=== PATIENT | female | born 1985 | race Caucasian/White ===

== ENCOUNTER 2017-01-15 03:36 | Inpatient (IN) | payer OTHER ==
[2017-01-15] MEDS ORDERED: TERBUTALINE SULFATE 1 MG/ML VIAL IV PRN (04:56)
[2017-01-15] MEDS ORDERED: OXYTOCIN 20 UNIT in LR 1,000 ML IV PRN (04:56)
[2017-01-15] MEDS ORDERED: EPSOM SALT 454 GM TP PRN (04:56)
[2017-01-15] MEDS ORDERED: IBUPROFEN 600 MG TAB PO PRN (04:56)
[2017-01-15] MEDS ORDERED: LR 1,000 ML IV PRN (04:56)
[2017-01-15] MEDS ORDERED: OLIVE OIL 118 ML BTL MISC PRN (04:56)
--- NOTE | 2017-01-15 05:08 | GHP ---
[f rep st] PREOP HISTORY AND PHYSICAL DATE OF ADMISSION: 01/15/2017 ADMITTING DIAGNOSIS: Intrauterine at 39 and 6/7 weeks' gestation in active labor. HISTORY OF PRESENT ILLNESS: The patient is a 31-year-old 1, para 0 with a last menstrual per iod of 03/29/2016, and EDC of 01/16/2017. She is set by a first trimester ultrasound. She has had g ood care at [facility] since transfer at 25 weeks. She was living in [place] prior to that. 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 She had an amniocentesis performed and the b guerda is also an SMA carrier, but not affected. She is allergic to penicillin, it gives her hives. Ot her than that, she has had a normal course and has progressed to 39-5/7 weeks. She began zabala ving contractions. They are progressing to every 2-3 minutes and strong. Upon evaluation, hea rt tones are 140s, reactive, moderate variability, category 1. She is obed every 2-3 minutes. Her cervix, per RN exam, is 5, 50, -2, and she is intact. She will be admitted for active labor [facility]. The patient desires an epidural for pain control. PAST OBSTETRICAL HISTORY: The patient has no past obstetrical history, this is her first . PAST GYNECOLOGICAL HISTORY: She has a normal menstrual triad, menarche at age 18. She has irregular cycles, they are 5 days in length. This was a planned . She has no significant gynecologi anju problems. No history of abnormal Paps. No history of STDs. She used OCPs and the NuvaRing in t he past. PAST MEDICAL HISTORY: She has no significant medical problems. PAST SURGICAL HISTORY: No surgical history. ALLERGIES: She is allergic to penicillin, it causes her to have hives. LABS: She is A positive, rubella immune, hepatitis negative, HIV negative. She is an SMA carrier an d the father of the baby, as well as this baby is a carrier. 1-hour GTT was 146, three-hour was norm al. was negative. GBS was negative. SOCIAL HISTORY: She is . She works as a project scientist for a [employer] and she has traveled to [place] frequently during this . She denies tobacco, alcohol, and drug use. FAMILY HISTORY: Paternal grandfather had asthma. Maternal grandmother had bowel cancer. Maternal g randfather had strokes. Maternal grandmother had Alzheimer disease. Paternal grandmother had schizo phrenia. No other significant family history. REVIEW OF SYSTEMS: Negative, except for pertinents above. OBJECTIVE: Today she is afebrile. Vital signs are stable. heart tones 140s, reactive, modera te variability, category 1. She is obed every 2-3 minutes. Cervix is 5, 50, -2. ASSESSMENT AND PLAN: This is a 31-year-old 1, para 0 at 39 and 6/7 weeks' gestation in activ e labor. The patient is admitted for active labor management. She desires an epidural for pain cont rol at this time. status is reassuring. /[id number]/MODL
[2017-01-15 05:10] LABS: ADD DIFF? YES; ADD MORPH? NO; ADD SCAN? NO; ATYPICAL LYMPHOCYTE FLAG 0 (0-99); FRAGMENT RBC FLAG 0 (0-99); HEMATOCRIT 36.2 % (38.0-47.0); HEMOGLOBIN 12.7 g/dL (12.6-16.3); LEFT SHIFT FLG 10 (0-99); LIPEMIA HEMOLYSIS FLAG 90 (0-99); MEAN CELL HEMOGLOBIN 32.6 pg (27.9-34.1); MEAN CELL HEMOGLOBIN CONCENTR. 35.1 g/dL (32.4-36.7); MEAN CELL VOLUME 92.8 fL (81.5-99.8); MEAN PLATELET VOLUME 10.6 fL (8.7-11.7); PLATELET CLUMPS FLAG 0 (0-99); PLATELET COUNT 307 10^3/uL (150-400)
[2017-01-15] MEDS ORDERED: PHENYLEPHRINE HCL 100 MCG/ML SYR ONE (05:13)
[2017-01-15] MEDS ORDERED: fentaNYL 2MCG/ML/BUP 0.1% RTU 100 ML BAG EP ONE (05:13)
[2017-01-15] MEDS ORDERED: BUPIVACAINE 0.25% 30 ML SDV ONE (05:13)
[2017-01-15] MEDS ORDERED: fentaNYL 100 MCG/2 ML INJ ONE (05:14)
--- NOTE | 2017-01-15 06:29 | PREANESOB ---
Obstetric Pre-Anesthesia Info - General Info Proposed Procedure: Labor and delivery. : 1 Para: 0 YOEL: 01/16/17 Gestational Age: 39 week(s) and 6 day(s) - Info Status: Full Term Monitors: External FHR Baseline (bpm): 140 FHR Pattern: Reassuring - Labor Status Cervical Dilation per last OB SVE: 5 Indications for Labor Analgesia: Pain Control Labor Epidural: Proposed Anesthesia ROS: Negative. Allergies/Adverse Reactions: Allergy/AdvReac Type Severity Reaction Status Date / Time Penicillins Allergy Verified 01/15/17 05:15 Visit Medications: Generic Name Dose Route Start Last Admin Trade Name Freq PRN Reason Stop Dose Admin Lactated Ringer's 1,000 mls @ 0 mls/hr 01/15/17 04:56 Lr IV 01/16/17 04:55 PRN PRN SEE PROTOCOL CONDITIONS Protocol Per Protocol Oxytocin 20 unit/ Lactated 1,002 mls @ 150 mls/hr 01/15/17 04:56 Ringer's IV PRN PRN Post- bleeding Ibuprofen 600 mg 01/15/17 04:56 Motrin PO 07/14/17 04:55 Q6HRS PRN post , inflammation Magnesium Sulfate 454 gm 01/15/17 04:56 Epsom Salt TP 07/14/17 04:55 Q1H PRN perineal discomfort [place]ama Oil 118 ml 01/15/17 04:56 Sweet Oil MISC 07/14/17 04:55 ONCE PRN perineal massage Terbutaline Sulfate 0.25 mg 01/15/17 04:56 Brethine IV 07/14/17 04:55 ONCE PRN Tachysystole Discontinued Medications Generic Name Dose Route Start Last Admin Trade Name Freq PRN Reason Stop Dose Admin Bupivacaine HCl Confirm 01/15/17 05:13 Sensorcaine 0.25% Sdv Administered 01/15/17 05:14 Dose 30 ml .ROUTE .STK-MED ONE Fentanyl Confirm 01/15/17 05:14 Sublimaze Administered 01/15/17 05:15 Dose 100 mcg .ROUTE .STK-MED ONE Fentanyl/Bupivacaine HCl Confirm 01/15/17 05:13 Fentanyl/Bupivacaine/Ns 2 Mcg/Ml 0.1% (Premix Administered 01/15/17 05:14 Dose 100 ml EP .STK-MED ONE Phenylephrine HCl Confirm 01/15/17 05:13 Neosynephrine Administered 01/15/17 05:14 Dose 1,000 mcg .ROUTE .STK-MED ONE - Anesthesia History Response to Local Anesthetics: Normal Anesthesia & Operative History: No Prior Problems Family Anesthesia History: Negative - Social History Substance Use/Abuse: Denies - Vital Signs Blood Pressure: 128/77 Heart Rate: 93 Height/Weight (Nursing): Height 158 cm Weight 68.492 kg - Focused Exam Neck exam: FROM Mallampati Score: Class 1 Mouth exam: normal dental/mouth exam Pulmonary: no respiratory distress Cardiovascular: regular rate and rhythym Labs: 01/15/17 04:45 Patient ABO/Rh A POSITIVE 01/15/17 04:45 - Plan Anesthetic Plan: MATILDA Consent Signed and on Chart: Yes Patient/Guardian Understands and Agrees to Plan: Yes Urgent/Emergent Case: Omari buck completed preop but documented later for safe timely pt care
[2017-01-15 06:31] LABS: PLATELET ESTIMATE ADEQUATE (ADEQ)
[2017-01-15] MEDS ORDERED: PHENYLEPHRINE HCL 100 MCG/ML SYR IVP PRN (06:32)
[2017-01-15] MEDS ORDERED: ONDANSETRON 4 MG/2 ML VIAL IVP PRN (06:32)
--- NOTE | 2017-01-15 06:32 | POSTANESTH ---
Post Anesthetic Evaluation Cardiovascular Status: Normal, Stable, Similar to Pre-Op Cond Respiratory Status: Normal, Stable, Similar to Pre-op Cond. Level of Consciousness/Mental Status: Can Participate in Eval, Alert and Oriented Pain Control: Adequate, Prn Tx Ordered Nausea/Vomiting Control: Adequate, Prn Tx Ordered Complications Possibly Related to Anesthesia: None Noted
[2017-01-15] MEDS ORDERED: LIDOCAINE 1% 300 MG/30 ML SDV ONE (06:46)
[2017-01-15] MEDS ORDERED: OLIVE OIL 118 ML BTL ONE (06:47)
[2017-01-15] MEDS ORDERED: MISOPROSTOL 200 MCG TAB ONE (06:47)
[2017-01-15] MEDS ORDERED: AMMONIA AROMATIC 1 EACH AMP IH ONE (06:47)
[2017-01-15] MEDS ORDERED: OXYTOCIN 10 UNIT/ML VIAL ONE ×2 (06:47→09:30)
[2017-01-15] MEDS ORDERED: TERBUTALINE SULFATE 1 MG/ML VIAL ONE (06:47)
[2017-01-15] MEDS ORDERED: LR 500 ML IV SCH (07:00)
[2017-01-15] MEDS ORDERED: fentaNYL 2MCG/ML/BUP 0.1% RTU 100 ML EP SCH (07:00)
--- NOTE | 2017-01-15 08:54 | OBPROG ---
Labor Progress Note Assessment/Plan: Assessment: IUP at 39w6d, SSOC, SROM, clear, GBS - comf with MATILDA but feeling pressure mom, dad and baby are SMA carriers Plan: Complete and +1 station, will begin pushing soon 01/15/17 08:51 Subjective/Intrapartum Course: 01/15/17 08:53 Comf with MATILDA, feeling pressure Objective: 01/15/17 04:45 Patient ABO/Rh A POSITIVE 01/15/17 04:45 Temp Pulse Resp BP Pulse Ox 93 13 128/77 H 01/15/17 06:31 01/15/17 08:24 01/15/17 06:31 - SVE Dilation (cm): 10 Effacement (%): 100 Station: +1 Membranes: SROM Amniotic Fluid Color: Clear Dilation Complete Date: 01/15/17 Dilation Complete Time: 08:31 - Contraction Pattern Assessment Current Contraction Pattern: Regular (q 2-4 min) - FHR Assessment [place] FHR (bpm): 130 FHR Pattern Variability: Moderate FHR Category: 1 - Procedures Non-surgical Procedures: Other (Specify) (MATILDA) - AP Antepartum Course: 01/15/17 08:55 uncomplicated except transfer from [place] at 25 wks, pt and husb SMA carriers and fetus eval in [place] and also carrier status Oxytocin Orders Assessment - Pre-Induction/Augmentation Assessment Gestational Age: 39 week(s) and 6 day(s) ICD10 Worksheet Patient Problems: Problems Problem Status Onset Normal labor Acute - ICD10 Problem Qualifiers (1) Normal labor
[2017-01-15] MEDS ORDERED: OXYTOCIN/NS *STANDARD DOSE PROTOCOL IV SCH (11:30)
[2017-01-15] MEDS ORDERED: ACETAMINOPHEN 325 MG TAB PO PRN (15:23)
--- NOTE | 2017-01-15 15:27 | OBDEL ---
Info Type: Vaginal Presentation at Delivery: Vertex L&D Analgesia/Anesthesia Type: Epidural GBS+: No - Care Provider Malted Milk Mixer/STAFF NURSE MIDWIFE: Kiara Moore - Hospital Course Intrapartum: 01/15/17 08:53 Comf with MATILDA, feeling pressure Indications for Delivery: Spontaneous Labor Vaginal Delivery - Delivery Provider Delivery Physician/CNM: Chichi Abdalla - Labor and Delivery Onset of Contractions Date: 01/15/17 Onset of Contractions Time: 03:00 Onset of Contractions Type: Spontaneous Rupture of Membranes Date: 01/15/17 Rupture of Membranes Time: 06:00 Rupture of Membranes Type: Spontaneous Amniotic Fluid Color: Clear Dilation Complete Date: 01/15/17 Dilation Complete Time: 08:31 Placenta Delivery Date: 01/15/17 Placenta Delivery Time: 15:00 Total Hours of Labor: 12 Non-surgical Procedures: Other (Specify) (MATILDA) Laceration: 1st Degree Repair: Other (Specify) (none) Vaginal Sponge Count Correct: Yes Vaginal Needle Count Correct: Yes Vaginal Sweep Performed: Yes EBL: 300 - Medications Labor Augmentation/Induction Methods Used: Pitocin Labor Augmentation/Induction Indication: Contraction Strength Inadequate (after MATILDA with pushing) Assissted Delivery Assisted Delivery Type: Vacuum Station: +2 Pop offs (Total): 1 Pulls (Total): 2 Assisted Delivery Comment: easy descent of head with vacuum. with second pull, head was and vacuum removed and pt pushed slowly to reduce tearing. [place] Data [place] Delivery Date: 01/15/17 Delivery Time: 14:52 YOEL: 01/16/17 Gestational Age: 39 week(s) and 6 day(s) Sex of : Male (Antonio) Score (1 Min): 8 Score (5 Min): 9 ICD10 Worksheet Patient Problems: Problems Problem Status Onset Vacuum extraction, delivered, current hospitalization Acute - ICD10 Problem Qualifiers (1) Normal labor
[2017-01-15 18:39] VITALS: RESP 16
[2017-01-15] MEDS: IBUPROFEN 600 MG TAB PO SCH (21:56)
[2017-01-16] MEDS: IBUPROFEN 600 MG TAB PO SCH ×4 (03:33→21:50)
[2017-01-16] MEDS ORDERED: EPSOM SALT 454 GM TP ONE (08:50)
[2017-01-16] MEDS: DOCUSATE SODIUM 100 MG CAP PO PRN (09:22)
--- NOTE | 2017-01-16 12:54 | OBPP ---
Progress Note Assessment/Plan: Assessment: [id number] s/p VAVD PPD#1 Plan: routine PP Care cont plan to d/c home tomorrow 01/16/17 13:05 Subjective/ Course: 01/16/17 13:07 pt doing well, she is happy with her . She denies any heavy bleeding or severe pain. She reports vaginal soreness. She is ambulating and voiding without difficulty. Objective: 01/15/17 04:45 Patient ABO/Rh A POSITIVE 01/15/17 04:45 Temp Pulse Resp BP Pulse Ox 36.1 C 66 16 116/78 94 01/16/17 08:00 01/16/17 08:00 01/16/17 08:00 01/16/17 08:00 01/16/17 08:00 Uterine Position/Fundal Height: At Umbilicus, Midline Uterine Tone: Firm Physical Exam - Physical Exam EENT: PERRL/EOMI Neck: supple Respiratory: lungs clear, normal breath sounds Cardiac/Chest: regular rate, rhythm Abdomen: non-tender, soft Extremities: normal inspection Skin: normal color, warm/dry Neuro/Psych: no motor/sensory deficits, alert, normal mood/affect, oriented x 3
[2017-01-16 21:38] VITALS: O2SAT 95
[2017-01-17] MEDS: IBUPROFEN 600 MG TAB PO SCH ×3 (03:48→15:26)
[2017-01-17] MEDS: DOCUSATE SODIUM 100 MG CAP PO PRN (07:46)
--- NOTE | 2017-01-17 09:03 | OBPP ---
Progress Note Assessment/Plan: Assessment: Post day 2 Vacuum assisted vaginal delivery Tolerating diet, ambulating, breast feeding flatus Ready to discharge home Plan: Discharge home Return precautions Return in two weeks IBuprofen and stool softener 01/17/17 09:03 Subjective/ Course: 01/16/17 13:07 pt doing well, she is happy with her . She denies any heavy bleeding or severe pain. She reports vaginal soreness. She is ambulating and voiding without difficulty. Objective: 01/15/17 04:45 Patient ABO/Rh A POSITIVE 01/15/17 04:45 Temp Pulse Resp BP Pulse Ox 36.1 C 76 16 122/77 H 95 01/16/17 21:10 01/16/17 21:10 01/16/17 21:10 01/16/17 21:10 01/16/17 21:10 Uterine Position/Fundal Height: Umbilicus -3 Uterine Tone: Firm Physical Exam - Physical Exam Respiratory: chest non-tender Cardiac/Chest: normal peripheral pulses Extremities: normal range of motion, non-tender, normal inspection Skin: normal color, warm/dry Neuro/Psych: no motor/sensory deficits, alert, normal mood/affect, oriented x 3
--- NOTE | 2017-01-17 09:06 | OBGCSDC ---
General Delivery Information - General Info : 1 Para: 1 Abortions: 0 Type: Vaginal L&D Analgesia/Anesthesia Type: Epidural Admission Date: 01/15/17 Labs: Patient ABO/Rh A POSITIVE 01/15/17 04:45 Hct 36.2 % (38.0-47.0) L 01/15/17 04:45 - Hospital Course Antepartum: 01/15/17 08:55 uncomplicated except transfer from [place] at 25 wks, pt and husb SMA carriers and fetus eval in [place] and also carrier status Intrapartum: 01/15/17 08:53 Comf with MATILDA, feeling pressure : 01/16/17 13:07 pt doing well, she is happy with her . She denies any heavy bleeding or severe pain. She reports vaginal soreness. She is ambulating and voiding without difficulty. Vaginal - Delivery Provider Delivery Physician/CNM: Chichi Abdalla - Diagnosis Labor: Spontaneous Rupture of Membranes Type: Spontaneous Amniotic Fluid Color: Clear Laceration: 1st Degree Repair: Other (Specify) (none) - Procedures Assisted Delivery Type: Vacuum Non-surgical Procedures: Other (Specify) (MATILDA) - Delivery Non-surgical Procedures: Other (Specify) (MATILDA) EBL: 300 [place] Data [place] Delivery Date: 01/15/17 Delivery Time: 14:52 YOEL: 01/16/17 Gestational Age: 40 week(s) and 1 day(s) Sex of Infant: Male [place] Weight (gm): 3242 kg Score (1 Min): 8 Score (5 Min): 8 Discharge Information - Discharge Information Prescriptions: Docusate Sodium [Colace 100 MG (*)] 100 mg PO BID PRN #30 cap PRN Reason: Constipation Ibuprofen [Motrin (*)] 600 mg PO Q6H #30 tab Condition: Good Instruction/Follow Up: Two Weeks
[2017-01-17 15:38] VITALS: BP 117/76; PULSE 72; TEMP 98.2
== END 2017-01-17 17:15 | disposition home or self-care (01) | DRG 775 ==
LOC: FLD 03:36 → OBSVTOIN 04:56 → FOB 18:26
PROVIDERS: ADMIT Obstetrics & Gynecology; ATTEND Obstetrics & Gynecology
PROC: 10D07Z6 Extraction of Products of Conception, Vacuum, Via Natural or Artificial Opening (ICD-10-PCS; principal; 2017-01-15)
DX: O70.0 First degree perineal laceration during delivery (principal); Z37.0 Single live birth; Z3A.40 40 weeks gestation of pregnancy
CPT/HCPCS: J2370; J3010; J3105

== ENCOUNTER → 2017-02-03 | Outpatient (CLI) | payer OTHER | LOC: FLACT 12:20 | PROVIDERS: ATTEND Obstetrics & Gynecology | DX: Z39.1 Encounter for care and examination of lactating mother (principal) | CPT/HCPCS: G0463 ==

== ENCOUNTER → 2017-02-25 | Outpatient (CLI) | payer OTHER | LOC: FLACT 09:55 | PROVIDERS: ATTEND Obstetrics & Gynecology | DX: Z39.1 Encounter for care and examination of lactating mother (principal) | CPT/HCPCS: G0463 ==

== ENCOUNTER → 2017-04-25 | Outpatient (CLI) | payer OTHER | LOC: FLACT 10:48 | PROVIDERS: ATTEND Obstetrics & Gynecology | DX: Z39.1 Encounter for care and examination of lactating mother (principal) | CPT/HCPCS: G0463 ==